=== PATIENT | female | born 1940 | race Caucasian/White ===

== ENCOUNTER 2016-04-29 07:42 | Emergency (ER) | payer BC ==
[2016-04-29 08:04] VITALS: BP 135/56
--- NOTE | 2016-04-29 09:04 | RAD ---
INDICATION: Cough and fever for 5 days. Former tobacco use. COMPARISON: None. TECHNIQUE: Dual energy PA and routine lateral views of the chest were obtained. REPORT: Bilateral linear subsegmental atelectasis at the mid to lower lung zones. No focal pulmonary lesion, pleural effusion, pneumothorax. Upper normal heart size. Unremarkable central pulmonary vasculature. Mildly tortuous descending thoracic aorta. Multilevel mild thoracic degenerative spondylosis. IMPRESSION: Bilateral linear subsegmental atelectasis. Bibasilar inflammatory infiltrate not entirely excluded.
--- NOTE | 2016-05-11 16:51 | UC ---
Arline Rodriguez Anna, scribed for Clarita Daniel MD on 04/29/16 at 0825 . Respiratory Complaint HPI - HPI Summary HPI Summary: Patient is a 76 y/o female coming to [facility] [place] presenting with gradual onset of a cough that began five days ago. She first noticed a sore throat five days ago. She then began sneezing, following by gradual onset of productive cough with yellow sputum. The throat pain has mostly resolved at this time, though it still feels scratchy. She also had a fever of 100.6 F. She has been unable to sleep because of the coughing, which has become worse since yesterday. Denies rash. Her history is significant for HLD and HTN. Denies Hx of DM. She denies using albuterol previously. She has had PNA before. She quit smoking in 1985. Her [id number], who visits rarely, is the only smoking member of the household. She does not have an inhaler at home. She has used an inhaler before. She wears a sleep apnea mask at night. - History of Current Complaint Chief Complaint: UCGeneralIllness Stated Complaint: COUGH Time Seen by Provider: 04/29/16 08:04 Hx Obtained From: Patient Onset/Duration: Gradual Onset, Lasting Days - five days ago, Worse Since - one day ago - Allergies/Home Medications Allergies/Adverse Reactions: Allergies Allergy/AdvReac Type Severity Reaction Status Date / Time sklk sutures Allergy Severe welts Uncoded 01/30/14 12:08 Home Medications: Home Medications Amlodipine Besylate [Norvasc 5 mg tab] 04/29/16 [History] Aspirin [[place]aria Aspirin EC Low Dose 81 MG] 04/29/16 [History] Atorvastatin* [Lipitor 20 MG*] 04/29/16 [History] Hydrochlorothiazide TAB* [Hydrodiuril TAB*] 04/29/16 [History] Magnesium Oxide [Magnesium] 04/29/16 [History] Moexipril HCl 04/29/16 [History] Potassium Chlor TAB (NF) [Kaon-Cl-10 TAB (NF)] 04/29/16 [History] PMH/Surg Hx/FS Hx/Imm Hx Endocrine History Of: Denies: Diabetes Cardiovascular History Of: Reports: Cardiac Disorders - high cholesterol, Hypertension - Surgical History Surgical History: Yes Surgery Procedure, Year, and Place: B/L knee replacement 2016. B/L carpal tunnel repair. B/L cataract surgery - Family History Known Family History: Positive: Hypertension - Hx in mother, Diabetes - Hx NIDDM in mother - Social History Alcohol Use: Rare Substance Use Type: None Smoking Status (MU): Former Smoker When Did the Patient Quit Smoking/Using Tobacco: 1985 Review of Systems Constitutional: Fever - See HPI Skin: Negative Eyes: Negative ENT: Sore Throat - See HPI, Nasal Discharge - See HPI Respiratory: Cough - See HPI Cardiovascular: Negative Gastrointestinal: Negative Genitourinary: Negative Motor: Negative Neurovascular: Negative Musculoskeletal: Negative Neurological: Negative Psychological: Negative All Other Systems Reviewed And Are Negative: Yes Physical Exam Triage Information Reviewed: Yes Appearance: Well-Nourished Vital Signs: Initial Vital Signs Temp 99.4 F 04/29/16 07:59 Pulse 93 04/29/16 07:59 Resp 20 04/29/16 07:59 BP 135/56 04/29/16 07:59 Pulse Ox 93 04/29/16 07:59 Vital Signs Reviewed: Yes Eye Exam: Normal ENT Exam: Other - Bilateral TM retraction. Uvula edemadous. No stridor. Airway intact. Neck exam: Normal Neck: Positive: Other: - No adenopathy appreciated Respiratory Exam: Other - Breath sounds equal. Rhoncourous cough with scattered wheezes. Respiratory: Positive: Chest non-tender, No respiratory distress, No accessory muscle use, Rhonchi, Wheezing Cardiovascular: Positive: RRR, No Murmur, Pulses Normal - sitting up, Brisk Capillary Refill Abdominal Exam: Normal Abdomen Description: Positive: Nontender, No Organomegaly, Soft Bowel Sounds: Positive: Present Musculoskeletal Exam: Normal Musculoskeletal: Positive: Strength Intact Neurological Exam: Normal - Nonfocal, grossly intact Psychological Exam: Normal - Conversing easily and appropriately Skin Exam: Normal - No visible or reported rash UC Diagnostic Evaluation - Laboratory O2 Sat by Pulse Oximetry: 93 - Radiology Xray Interpretation: Positive (See Comments) Radiology Interpretation Completed By: Radiologist - IMPRESSION: Bilateral linear subsegmental atelectasis. Bibasilar inflammatory infiltrate Re-Evaluation - Re-Evaluation First Eval Re-Evaluation Time: 09:50 Comment: Discussed results and plan of care with patient. Patient is agreeable with plan. Respiratory Course/Dx - Course Course Of Treatment: D/c delayed because name was misspelled in the system. No new problems in CCC. Considered below differential diagnoses. Symptoms c/w - Differential Dx/Diagnosis Provider Diagnoses: Acute bronchitis. Bronchospasm Discharge - Discharge Plan Condition: Stable Disposition: HOME Prescriptions: Albuterol HFA INHALER* [Ventolin HFA Inhaler*] 1 - 2 puff INH Q4H PRN #1 mdi PRN Reason: Wheezing Azithromycin [Azithromycin 500 MG TAB] 500 mg PO DAILY #5 tab Fluconazole [Diflucan 150 MG (NF)] 150 mg PO DAILY #2 tab Patient Education Materials: Acute Bronchitis (ED), Bronchospasm (ED) Referrals: Twyla Damon MD [Primary Care Provider] - Additional Instructions: Please follow up with your primary care provider, Dr. Damon - in about one week if possible. Seek medical attention for worsening problems in the meantime. The documentation as recorded by the Arline ospina Anna accurately reflects the service I personally performed and the decisions made by me, Clarita Daniel MD.
== END 2016-04-29 10:29 | disposition home or self-care (01) ==
LOC: MERGE 07:42 → UCEAST 07:42
DX: J20.9 Acute bronchitis, unspecified (principal); E78.00 Pure hypercholesterolemia, unspecified; I10 Essential (primary) hypertension; Z96.653 Presence of artificial knee joint, bilateral; Z98.42 Cataract extraction status, left eye; Z98.41 Cataract extraction status, right eye; Z87.891 Personal history of nicotine dependence
CPT/HCPCS: 71020; 87502; 87651; 99201; G0463

== ENCOUNTER 2016-09-18 21:03 | Emergency (ER) | payer MEDICARE ==
[2016-09-18 21:22] VITALS: BP 152/64
[2016-09-18] MEDS ORDERED: predniSONE TAB* 20 MG PO ONE (21:34)
--- NOTE | 2016-09-18 21:34 | UC ---
Eye Complaint HPI - HPI Summary HPI Summary: 76 year old female presents with complains of left sinus pressure and eye pain. - History of Current Complaint Chief Complaint: UCEye Stated Complaint: EYE ISSUE Time Seen by Provider: 09/18/16 21:27 - Allergies/Home Medications Allergies/Adverse Reactions: Allergies Allergy/AdvReac Type Severity Reaction Status Date / Time Amoxicillin [From Augmentin] AdvReac GI Upset Verified 09/18/16 21:47 Clavulanic Acid AdvReac GI Upset Verified 09/18/16 21:47 [From Augmentin] sklk sutures Allergy Severe welts Uncoded 01/30/14 12:08 PMH/Surg Hx/FS Hx/Imm Hx Previously Healthy: Yes - Surgical History Surgical History: Yes Surgery Procedure, Year, and Place: B/L knee replacement 2016. B/L carpal tunnel repair. B/L cataract surgery - Family History Known Family History: Positive: Cardiac Disease, Hypertension - Hx in mother, Diabetes - Hx NIDDM in mother - Social History Alcohol Use: Occasionally Substance Use Type: None Smoking Status (MU): Former Smoker Type: Cigarettes Amount Used/How Often: 1 PPD Length of Time of Smoking/Using Tobacco: 15YRS Have You Smoked in the Last Year: No When Did the Patient Quit Smoking/Using Tobacco: 1985 Review of Systems Constitutional: Negative Skin: Negative Eyes: Drainage, Eye Redness, Other - left eye pain ENT: Other - left maxillary sinus pressure Respiratory: Negative Cardiovascular: Negative Gastrointestinal: Negative Genitourinary: Negative Motor: Negative Neurovascular: Negative Musculoskeletal: Negative Neurological: Negative Psychological: Negative All Other Systems Reviewed And Are Negative: Yes Physical Exam Triage Information Reviewed: Yes Vital Signs: Initial Vital Signs Temp 37.4 C 09/18/16 21:19 Pulse 68 09/18/16 21:19 Resp 18 09/18/16 21:19 BP 152/64 09/18/16 21:19 Pulse Ox 95 09/18/16 21:19 Eyes: Positive: Conjunctiva Inflamed, Discharge ENT Exam: Normal ENT: Positive: Nasal congestion, Nasal drainage Dental Exam: Normal Neck exam: Normal Neck: Positive: 1 Respiratory Exam: Normal Cardiovascular Exam: Normal Abdominal Exam: Normal Musculoskeletal Exam: Normal Neurological Exam: Normal Psychological Exam: Normal Skin Exam: Normal Eye Complaint Course/Dx - Differential Dx/Diagnosis Provider Diagnoses: left sinus pain. left allergic conjunctivitis Discharge - Discharge Plan Condition: Stable Disposition: HOME Prescriptions: Azithromyxin PASCUAL (NF) [Z-Pascual (Zithromax) 250 mg tabs #6] 2 tab PO .TODAY, THEN 1 DAILY #6 tab Methylprednisolone [Medrol Dosepak 4 MG*] 4 mg PO .SEE PASCUAL INSTRUCTION #21 tab Naphazoline W/ Pheniramine [Opcon-A] 1 drop BOTH EYES Q6H PRN #1 bottle PRN Reason: Allergy Symptoms Patient Education Materials: Conjunctivitis (ED) Referrals: Twyla Damon MD [Primary Care Provider] - If Needed
[2016-09-18] MEDS ORDERED: Azithromycin TAB* 250 MG PO ONE (21:35)
== END 2016-09-18 21:52 | disposition home or self-care (01) ==
LOC: UCEAST 21:03
DX: J34.89 Other specified disorders of nose and nasal sinuses (principal); H10.12 Acute atopic conjunctivitis, left eye; Z88.1 Allergy status to other antibiotic agents; Z96.653 Presence of artificial knee joint, bilateral; Z98.42 Cataract extraction status, left eye; Z98.41 Cataract extraction status, right eye; Z87.891 Personal history of nicotine dependence
CPT/HCPCS: 99212; A9270-GY; G0463; J7512

== ENCOUNTER 2018-04-16 08:17 | Emergency (ER) | payer MEDICARE ==
[2018-04-16 08:26] VITALS: BP 189/78
[2018-04-16] MEDS ORDERED: HYDROcodone/ACETAMIN 5-325 MG* 1 TAB PO ONE (08:32)
--- NOTE | 2018-04-16 09:59 | UC ---
Complaint Female HPI - HPI Summary HPI Summary: Patient complaining of right flank pain that feels similar to kidney stone pain she has had in the past. No dysuria. No fever. Mild nausea. Follows with Dr. Sinha with urology. - History Of Current Complaint Chief Complaint: UCGU Stated Complaint: LOWER BACK PAIN Time Seen by Provider: 04/16/18 08:32 Hx Obtained From: Patient Onset/Duration: Gradual Onset, Still Present Timing: Constant Severity Initially: Moderate Severity Currently: Moderate Pain Intensity: 10 Pain Scale Used: 0-10 Numeric Character: Colicy Aggravating Factor(s): Nothing Alleviating Factor(s): Nothing Associated Signs And Symptoms: Positive: Back Pain, Nausea. Negative: Fever - Allergies/Home Medications Allergies/Adverse Reactions: Allergies Allergy/AdvReac Type Severity Reaction Status Date / Time amoxicillin [From Augmentin] Allergy GI Upset Verified 04/16/18 08:20 clavulanic acid Allergy GI Upset Verified 04/16/18 08:20 [From Augmentin] sklk sutures Allergy Severe welts Uncoded 04/16/18 08:20 Home Medications: Home Medications Cholecalciferol (Vitamin D3) [Vitamin D3] 5,000 unit PO DAILY 04/16/18 [History Confirmed 04/16/18] PMH/Surg Hx/FS Hx/Imm Hx Endocrine History: Dyslipidemia Cardiovascular History: Hypertension GI/ History: Kidney Stones - Surgical History Surgical History: Yes Surgery Procedure, Year, and Place: B/L knee replacement 2015. B/L carpal tunnel repair. B/L cataract surgery - Family History Known Family History: Positive: Cardiac Disease, Hypertension - Hx in mother, Diabetes - Hx NIDDM in mother - Social History Alcohol Use: Occasionally Substance Use Type: None Smoking Status (MU): Former Smoker Type: Cigarettes Amount Used/How Often: 1 PPD Length of Time of Smoking/Using Tobacco: 15YRS Have You Smoked in the Last Year: No When Did the Patient Quit Smoking/Using Tobacco: 1985 Review of Systems All Other Systems Reviewed And Are Negative: Yes Constitutional: Positive: Negative Respiratory: Positive: Negative Cardiovascular: Positive: Negative Gastrointestinal: Positive: Nausea Genitourinary: Positive: Other - FLANK PAIN Physical Exam Triage Information Reviewed: Yes Appearance: Well-Appearing, No Pain Distress, Well-Nourished Vital Signs: Initial Vital Signs Temp 98.3 F 04/16/18 08:22 Pulse 82 04/16/18 08:22 Resp 17 04/16/18 08:22 BP 189/78 04/16/18 08:22 Pulse Ox 99 04/16/18 08:22 Laboratory Tests 04/16/18 08:52 POC Urine Color Yellow POC Urine Clarity Clear POC Urine pH 5.5 POC Ur Specif [place] 1.020 POC Urine Protein Negative POC Ur Glucose (UA) Negative POC Urine Ketones Negative POC Urine Blood 1+ A POC Urine Nitrite Negative POC Urine Bilirubin Negative POC Urine Urobilinogen 0.2 POC U Leukocyte Esteras 2+ A Vital Signs Reviewed: Yes Eyes: Positive: Conjunctiva Clear ENT: Positive: Hearing grossly normal Neck: Positive: Supple Respiratory Exam: Normal Cardiovascular Exam: Normal Abdomen Description: Positive: Nontender, Soft. Negative: CVA Tenderness (R), CVA Tenderness (L), Distended, Guarding Musculoskeletal: Positive: No Edema Neurological: Positive: Alert Psychological: Positive: Normal Response To Family, Age Appropriate Behavior Skin: Negative: Rashes Diagnostics - Radiology CT ABD/PELVIS W/O CONTRAST Radiology Interpretation Completed By: Radiologist Summary of Radiographic Findings: Nephrolithiasis without evidence of obstructive uropathy. No other masses or fluid collections are noted. Complaint Female Dx - Differential Dx/Diagnosis Provider Diagnosis: Kidney stone on right side Discharge - Sign-Out/Discharge Documenting (check all that apply): Patient Departure All imaging exams completed and their final reports reviewed: Yes - Discharge Plan Condition: Stable Disposition: HOME Prescriptions: HYDROcodone/ACETAMIN 5-325 MG* [[place] 5-325 TAB*] 1 tab PO Q6H PRN #20 tab MDD 4 PRN Reason: Pain Tamsulosin CAP* [Flomax CAP*] 0.4 mg PO DAILY #7 cap Patient Education Materials: Kidney Stones (ED) Referrals: Twyla Damon MD [Primary Care Provider] - If Needed Uriah Sinha MD [Medical Doctor] - 1 Week Additional Instructions: CT ABD/PELVIS DONE. The kidneys demonstrates no hydronephrosis in either kidney or hydroureter. There are several 3 mm calculi in the right kidney without evidence of obstruction. There is a calcification in the upper pole of the left kidney measuring 7 mm. NSAIDS NEEDED FOR PAIN. HYDROCODONE/APAP FOR BREAKTHROUGH. FLOMAX DAILY FOR 7 DAYS. STRAIN YOUR URINE TO SEE IF YOU CAN CATCH THE STONE. FOLLOW-UP WITH UROLOGY. STAY WELL HYDRATED. URINE SAMPLE SENT FOR CULTURE. WE WILL CALL YOU IF ANY CHANGE IN MANAGEMENT IS INDICATED. - Billing Disposition and Condition Condition: STABLE Disposition: Home
== END 2018-04-16 10:27 | disposition home or self-care (01) ==
LOC: UCEAST 08:17
DX: N20.0 Calculus of kidney (principal); I10 Essential (primary) hypertension; Z87.891 Personal history of nicotine dependence; Z88.1 Allergy status to other antibiotic agents; Z88.0 Allergy status to penicillin; Z91.09 Other allergy status, other than to drugs and biological substances
CPT/HCPCS: 74176; 81003; 87086; 99212; G0463

== ENCOUNTER 2018-06-28 12:40 | Emergency (ER) | payer MEDICARE ==
--- OUTSIDE RECORDS SUMMARY | 2018-06-28 12:46 | XMS REPORT | Continuity of Care Document ---
:1940 External Reference #:[id number] Author Name Monica Sharmalyn Care Team Providers Name Role Phone Twyla Damon MD Care Team Information Vice President Of Business Development Unavailable Twyla Damon MD Primary Care Physician Unavailable Payers Date Identification Numbers Payment Provider Subscriber Effective: Policy Number: [id number] Medicare Blue Ppo Sae Strickland Christ 2012 Group Number: [id number] [address] PayID: [id number] HUSEYIN Evans [address] Effective: 2012 Policy Number: [id number] [employer] Cory Strickland Christ Expires: 2012 PayID: [id number] [address] [address] HUSEYIN Evans [address] Effective: 2008 Policy Number: [id number] Blue [facility] Cory Strickland Christ Expires: 2009 Group Name: [employer] [address] PayID: [id number] HUSEYIN Ruiz [address] Effective: 2009 Policy Number: [facility] Sae Strickland Christ [id number] Expires: 2012 PayID: [id number] [address] [address] HUSEYIN Ruiz [address] Problems Active Problems Provider Date Obstructive sleep apnea of adult Rossana Callejas DNP, RN, STUDENT SERVICES REP-BC Onset: 02/2011 Note: moderate to severe Localized, primary osteoarthritis Heidi Parry M.D. Onset: 11/01/2014 Family History Date Family Member(s) Observation Comments General Heart Disease General Cancer Father due to at age 85 auto accident () Mother due to at age 89 TIA () Mother Stroke Social History Type Date Description Comments Sex Unknown Marital Status Lives With Occupation Retired Tobacco Use Start: Unknown End: Former Cigarette Smoker Unknown Smoking Status Reviewed: 06/23/18 Former Cigarette Smoker ETOH Use Drinks Alcoholic Beverages Occasionally Tobacco Use Start: Unknown End: Patient is a former smoker Unknown Recreational Drug Use Denies Drug Use Exercise Type/Frequency Exercises regularly Allergies, Adverse Reactions, Alerts Active Allergies Reaction Severity Comments Date Amoxicillin / Clavulanate Nausea and Vomiting 05/14/2017 Inactive Allergies NKDA 07/12/2013 Medications Active Medications SIG Qnty Indications Ordering Date Provider Atorvastatin Calcium take 1 tablet Unknown 08/24/2014 20mg Tablets at bedtime Magnesium 1 by mouth Rossana Callejas, 08/24/2014 250mg Tablets every day DNP, RN, STUDENT SERVICES REP-BC Amlodipine Besylate 1 by mouth Unknown 5mg Tablets daily Aspirin Ec 1 by mouth 90tabs Unknown 81mg Tablets DR every day Certavite Unknown Senior/Antioxidant Nutrients Tablets Hydrochlorothiazide 1 by mouth Unknown 25mg Tablets every day Moexipril HCL 1 by mouth Unknown 15mg Tablets daily Vitamin D3 Ultra Strength 1 by mouth Unknown every day 5000Unit Capsules Potassium Chloride Quita ER take 4 Unknown 10Meq capsule/tablet Tablets ER daily by mouth History Medications Diclofenac Sodium take 1 tablet Unknown 02/14/2016 - twice a day with 05/13/[address] food Oxycodone HCL 1-2 tablets by 90caps M17.0 Edyta Cid, 11/29/2014 - 5mg mouth every 3 BUNG DROPPER 05/13/2017 Capsules hours as needed for pain Moexipril-Hydrochlo Unknown - rothiazide 05/13/2017 15-25mg Tablets Potassium Chloride 2 by mouth daily Unknown - ER 06/23/2018 10Meq Capsules ER Tessalon Perles 2 by mouth three Unknown - times a day 06/22/2018 100mg Capsules 05/14/17 Medications Administered in Office Medication SIG Qnty Indications Ordering Provider Date Depomedrol 80MG Heidi Parry M.D. 11/01/2014 Injection Depomedrol 80MG Timi Snider M.D. 03/15/2012 Injection Vital Signs Date Vital Result Comment 06/23/2018 11:32am Height 63 inches 5'3" Weight 234.00 lb Heart Rate 68 /min BP Systolic Sitting 128 mmHg BP Diastolic Sitting 70 mmHg Respiratory Rate 14 /min O2 % BldC Oximetry 95 % BMI (Body Mass Index) 41.4 kg/m2 05/14/2017 11:22am Height 63 inches 5'3" Weight 225.00 lb per pt Heart Rate 78 /min BP Systolic Sitting 130 mmHg Lue large cuff BP Diastolic Sitting 74 mmHg Lue large cuff Respiratory Rate 18 /min O2 % BldC Oximetry 95 % On Ra BMI (Body Mass Index) 39.9 kg/m2 02/15/2016 11:14am Height 63 inches 5'3" Weight 225.00 lb Heart Rate 89 /min BP Systolic Sitting 138 mmHg BP Diastolic Sitting 83 mmHg Respiratory Rate 14 /min O2 % BldC Oximetry 97 % BMI (Body Mass Index) 39.9 kg/m2 08/14/2015 11:08am Height 65 inches 5'5" Weight 210.00 lb Heart Rate 80 /min BP Systolic 140 mmHg BP Diastolic 84 mmHg Respiratory Rate 14 /min O2 % BldC Oximetry 98 % BMI (Body Mass Index) 34.9 kg/m2 11/29/2014 2:47pm Height 65 inches 5'5" Weight 225.00 lb Pain Level 7 BMI (Body Mass Index) 37.4 kg/m2 11/01/2014 1:16pm Height 65 inches 5'5" Weight 235.00 lb Heart Rate 73 /min BP Systolic 168 mmHg BP Diastolic 75 mmHg BMI (Body Mass Index) 39.1 kg/m2 08/25/2014 10:28am Height 64 inches 5'4" Weight 232.50 lb Heart Rate 78 /min BP Systolic 128 mmHg BP Diastolic 72 mmHg Respiratory Rate 14 /min O2 % BldC Oximetry 96 % BMI (Body Mass Index) 39.9 kg/m2 Neck Circumference in inches 18 07/20/2013 11:36am Height 64 inches 5'4" Weight 228.00 lb Heart Rate 70 /min BP Systolic 126 mmHg BP Diastolic 66 mmHg Pain Level 6 BMI (Body Mass Index) 39.1 kg/m2 Results Test Date Facility Test Result H/L Range Note Surgical 06/10/2012 [facility] S RUN DATE: [address] 06/11/ <[place] [address] NOTE> [phone] CBC Auto Diff 06/03/2012 [facility] White Blood 9.4 10^3/uL 4.8-10.[address] [place] [address] [phone] Red Blood Count 4.59 10^6/uL 4.0-5.4 Hemoglobin 13.7 g/dL 12.0-16.0 Hematocrit 41 % 35-47 Mean Corpuscular Volume 90 fL 80-97 Mean Corpuscular Hemoglobin 30 pg 27-31 Mean Corpuscular HGB Conc 33 g/dL 31-36 Red Cell Distribution Width 14 % 10.5-15 Platelet Count 208 10^3/uL 150-450 Mean Platelet Volume 10 um3 7.4-10.4 Abs Neutrophils 5.6 10^3/uL 1.5-7.7 Abs Lymphocytes 2.8 10^3/uL 1.0-4.8 Abs Monocytes 0.7 10^3/uL 0-0.8 Abs Eosinophils 0.2 10^3/uL 0-0.6 Abs Basophils 0.1 10^3/uL 0-0.2 Abs Nucleated RBC 0 10^3/uL Granulocyte % 60.0 % 38-83 Lymphocyte % 30.0 % 25-47 Monocyte % 7.3 % 1-9 Eosinophil % 2.0 % 0-6 Basophil % 0.7 % 0-2 Nucleated Red Blood Cells % 0 Basic Metabolic Panel 06/03/2012 [facility] Sodium 139 mmol/L 133-[address] [place] [address] [phone] Potassium 3.9 mmol/L 3.5-5.0 Chloride 105 mmol/L 101-111 Co2 Carbon Dioxide 28.0 mmol/L 22-32 Anion Gap 6.0 mmol/L 2-11 Glucose 101 mg/dL High 70-100 Blood Urea Nitrogen 21 mg/dL 6-24 Creatinine 0.70 mg/dL 0.50-1.40 BUN/Creatinine Ratio 30.0 High 8-20 Calcium 9.7 mg/dL 8.1-9.9 Egfr Non- 82.5 >60 Egfr 106.1 >60 2 Xray 02/08/2009 [facility] CT, Head/ Brain W/O Contrast DX: 432.1 [facility] [place] [address] [phone] 1 RUN DATE: 06/11/12 [facility] LAB LIVE PAGE 1 RUN TIME: 133[address] [employer] [place], [place] [address] Specimen Inquiry Name: SAE CHURCH : [address]: Timi Snider MD Acct: [id number] Unit: [id number] AGE: 72 Location: OR Re06/10/12 SEX: F Status: REG [facility] SPEC: [id number] CHECO: 06/10/12- SUBM DR: Timi Snider MD REQ: [id number] RECD: 06/10/12 STATUS: SOUT _ ORDERED: LEVEL III FINAL DIAGNOSIS Knee, left, shavings: A. Fragments of hyperplastic synovium with fibrosis, chronic inflammation, neovascularization, and myxoid change. B. Fragments of fibrocartilage with myxoid degeneration. PRE-OPERATIVE DIAGNOSIS Medial meniscal near left knee. GROSS DESCRIPTION The specimen is received in formalin labeled Sae Church, Arthroscopic Shavings Left Knee and consists of a 8.5 x 3.0 x 1.0 cm. aggregate of yellow and white tissue fragments. Submitted entirely, one cassette. Signed (signature on file) Ward Cross MD 1338 END OF REPORT * ML=Testing performed at Main Lab DEPARTMENT OF PATHOLOGY, [address] [place] [address] Ward Cross M.D. Director [facility] Permit #[id number] 2 Because ethnic data is not always readily available, this report includes an eGFR for both -Americans and non- Americans. The National Kidney Disease Education Program (NKDEP) does not endorse the use of the MDRD equation for patients that are not between the ages of 18 and 70, are , have extremes of body size, muscle mass, or nutritional status, or are non- or non-. According to the National Kidney Foundation, irrespective of diagnosis, the stage of the disease is based on the level of kidney function: Stage Description GFR(mL/min/1.73 m(2)) 1 Kidney damage with normal or decreased GFR 90 2 Kidney damage with mild decrease in GFR 60-89 3 Moderate decrease in GFR 30-59 4 Severe decrease in GFR 15-29 5 Kidney failure <15 (or dialysis) Procedures Date Code Description Status 11/01/201409449 Inject/Drain Joint/Bursa Major W/O US Completed 07/20/2013 87518 Xray Knee 3 Views Completed 07/20/2013 46230 Rad Exam; Knee, Ap&L Completed 06/10/2012 64623 Arthroscopy,Knee,Meniscectomy Medial Or Lateral Completed 06/10/2012 05154 Arthroscopy,Knee,Meniscectomy Medial Or Lateral Completed 05/12/2012 42712 Rad Exam; Both Knees, Standing Ap Completed 03/15/2012 99817 Rad Exam; Both Knees, Standing Ap Completed 03/15/201220067 Inject/Drain Joint/Bursa Major W/O US Completed 02/18/2008 58812 EKG, Interpretation Only Completed 02/18/2008 91734 EKG, Interpretation Only Completed Encounters Type Date Location Provider Dx Diagnosis Office Visit 05/14/2017 Pulmonology And Rossana Callejas, G47.33 Obstructive sleep 11:30a [facility] LOZADA, SHAKEEL-CHINYERE apnea (adult) [facility] (pediatric) Z68.39 Body mass index (BMI) 39.0-39.9, adult Office Visit 02/15/2016 Pulmonology And Rossana G47.33 Obstructive sleep 11:15a [facility] Callejas RN, apnea (adult) [place] BECKFORD-CHINYERE (pediatric) Office Visit 08/14/2015 Pulmonology And Rossana G47.33 Obstructive sleep 11:00a [facility] Callejas RN, apnea (adult) [employer] SHAKEEL-CHINYERE (pediatric) L89.812 Pressure ulcer of head, stage 2 E66.9 Obesity, unspecified Office Visit 11/29/2014 2:45p Orthopedic Heidi M17.0 Bilateral primary Services Of [facility] Parry osteoarthritis of C.M.A. 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 knee M25.461 Effusion, right knee M25.462 Effusion, left knee M25.562 Pain in left knee M25.561 Pain in right knee Office Visit 08/25/2014 Pulmonology And Rossana 327.23 Obstructive Sleep 11:30a [facility] Callejas, Apnea Adult & [employer] RN, STUDENT SERVICES REP-CHINYERE Pediatric Office Visit 07/20/2013 Néstor Snider 71Leonel.96 Osteoarthrosis 11:15a Services Of Melissa Unspec Genlzd Or C.M.A. Localized Lower Leg Office Visit 05/12/2012 Con Kenyon.96 Osteoarthrosis 10:45a Services Of Melissa Unspec Genlzd Or C.M.A. Localized Lower Leg Office Visit 03/15/2012 Con Kenyon.96 Osteoarthrosis 2:00p Services Of [facility] Unspec Genlzd Or C.M.A. Localized Lower Leg 836.0 Dislocation Knee Tear Of Medial Cartilage Or Meniscus Curren Office Visit 02/12/2009 1:30p Neurosurgery Dinesh Prabhakar.1 Hemorrhage Services Of [facility] Olmos M.D. Subdural Office Visit 02/07/2009 11:00a Neurosurgery Dinesh Prabhakar.1 Hemorrhage [facility] Olmos M.D. Subdural Office Visit 02/05/2009 4:15p Neurosurgery Dinesh Prabhakar.1 Hemorrhage [facility] Olmos M.D. Subdural Plan of Treatment Future Appointment(s):06/28/2019 11:15 am - Rossana Callejas DNP, RN, STUDENT SERVICES REP-BC at [facility]06/23/2018 - Rossana Callejas DNP, RN, STUDENT SERVICES REP- BCG47.33 Obstructive sleep apnea (adult) (pediatric)Comments:07/11/11 split night study AHI 26.9 rodolfo oxygen 74%, wt 5'4'', wt 224. On CPAP 7 cm AHI 0.3/hour , normalFollow up:1 yearRecommendations:Continue PAP device, Benefitting and compliant with treatment. Cleaning Wipe off mask daily (baby wipe-no scent, or warm water) Clean mask, tubing, filter, and water chamber weekly in mild no scent dish soap and water. Hang to dry. If you have any sleepiness while driving you MUST avoid operating a vehicle or machinery. If you have difficulty with your equipment, or need to replace your mask or hoses, please contact your homecare agency. A weight change of 20 pounds or more may have an effect onyour equipment; if you are experiencing problems please call for an appointment. If you have any further questions, please call the [facility] at .E66.9 Obesity, unspecifiedRecommendations:Recommend weight loss, avoid weight gain Overall weight gain 10# since your sleep apnea lyleruzncQ81.41 Body mass index (BMI) 40.0-44.9, adultRecommendations:see assessment #2
[2018-06-28 13:22] VITALS: BP 142/71
--- NOTE | 2018-06-29 07:12 | UC ---
- Progress Note Progress Note: Patient Name: SAE CHURCH Medical Record#: [id number] Ordering Physician: Susana Pierre NP Acct.#: [id number] : 1940 Age: 78 Sex: F Location: [facility] Exam Date: 06/28/18 1350 ADM Status: REG ER Order Information: US RENAL COMPLETE Accession Number: [id number] CPT: 65625 Indication: LEFT flank pain today. History of nephrolithiasis. Comparison: April 16, 2018 CT. Technique: Renal ultrasound. Report: 10.4 x 4.2 x 4.6 cm RIGHT kidney with normal cortical thickness and echogenicity is remarkable for 4 calyceal stones with dominant 1.0 x 0.5 x 0.7 cm midpole stone measuring larger than conspicuous on the April 16, 2018 CT however this may be technical. Negative for hydronephrosis. Negative for suspicious focal RIGHT renal lesions. 11.8 x 5.3 x 5.2 cm LEFT kidney demonstrates normal cortical thickness and echogenicity. 0.8 cm maximum dimension mid to superior pole calyceal stone is unchanged compared with the prior CT. Negative for hydronephrosis. Negative for focal LEFT renal lesions. IMPRESSION: #. Bilateral nephrolithiasis as described. Negative for hydronephrosis. <Electronically signed by Narinder Jean MD in OV> 06/28/181516 Dictated By: Narinder Jean MD Dictated Date/Time: 06/28/181516 Transcribed Date/Time: 06/28/18 151 Copy to: CC:Twyla Damon MD; Susana Pierre MODEL ENGINE MECHANIC; Aditya Miranda MD Imaging - [facility] Imaging - [place] [facility] [address] [address] ph [phone]) ph ([phone]) ph ([phone]) This report is only to be considered final once signed by the Provider(s) as displayed in the "<Electronically Signed by >" field (s). Absence of a signature indicates the report is in a draft status and still needs to be finalized. In the event this document was created by someone other than the signing Provider, the individual initiating the document will be listed in the "Entered by:" or "Dictated by:" lilly. 1 of 1 Course/Dx - Diagnoses Provider Diagnoses: Strain of thoracic back region Discharge - Sign-Out/Discharge Documenting (check all that apply): Post-Discharge Follow Up All imaging exams completed and their final reports reviewed: Yes - Discharge Plan Condition: Fair Disposition: HOME Prescriptions: Cyclobenzaprine TAB* [Flexeril 10 MG TAB*] 10 mg PO TID PRN #15 tab PRN Reason: Pain Patient Education Materials: Thoracic Back Strain (ED) Referrals: Twyla Damon MD [Primary Care Provider] - Additional Instructions: Avoid movements that cause pain, no lifting, twisting, pushing, pulling, bending. May apply heat to the sore area. Do not alcohol, drive or operate machinery while you're taking the muscle relaxant. He may also take Motrin 600 mg every 8 hours with food over the next few days. Follow-up with Dr. Tidwell by phone to check on tomorrow's appointment. - Billing Disposition and Condition Condition: FAIR Disposition: Home
--- NOTE | 2018-07-04 08:19 | UC ---
Back Pain HPI - HPI Summary HPI Summary: 78-year-old female who has left-sided mid thoracic back pain which she thinks might be a kidney stone. This was a gradual onset however she does not remember any known injury. She is scheduled for a renal sonogram tomorrow with Dr. Sinha. - History of Current Complaint Chief Complaint: UCBackPain Stated Complaint: UPPER BACK PAIN Time Seen by Provider: 06/28/18 13:41 Hx Obtained From: Patient ?: No Onset/Duration: Gradual Onset Timing: Intermittent Severity Initially: Mild Severity Currently: Mild Pain Intensity: 1 Pain Scale Used: Adult Non Verbal Character: Dull, Aching - Patient feels a back pain mostly with movement and she can replicate the pain when she is turning to the right or left. Aggravating Factor(s): Movement Alleviating Factor(s): Rest Associated Signs And Symptoms: Positive: Negative - Allergies/Home Medications Allergies/Adverse Reactions: Allergies Allergy/AdvReac Type Severity Reaction Status Date / Time amoxicillin [From Augmentin] Allergy GI Upset Verified 06/28/18 13:11 clavulanic acid Allergy GI Upset Verified 06/28/18 13:11 [From Augmentin] sklk sutures Allergy Severe welts Uncoded 06/28/18 13:11 Home Medications: Home Medications Chlorthalidone TAB* [Hygroton TAB*] 25 mg PO DAILY 06/28/18 [History Confirmed 06/28/18] Moexipril HCl 15 mg PO DAILY 06/28/18 [History Confirmed 06/28/18] PMH/Surg Hx/FS Hx/Imm Hx Previously Healthy: Yes Cardiovascular History: Hypertension - Surgical History Surgical History: Yes Surgery Procedure, Year, and Place: B/L knee replacement 2015. B/L carpal tunnel repair. B/L cataract surgery. cholecystectomy, appendectomy, tubal ligation - Family History Known Family History: Positive: Cardiac Disease, Hypertension - Hx in mother, Diabetes - Hx NIDDM in mother - Social History Alcohol Use: Occasionally Substance Use Type: None Smoking Status (MU): Former Smoker Type: Cigarettes Amount Used/How Often: 1 PPD Length of Time of Smoking/Using Tobacco: 15YRS Have You Smoked in the Last Year: No When Did the Patient Quit Smoking/Using Tobacco: 1985 Review of Systems All Other Systems Reviewed And Are Negative: Yes Motor: Positive: Negative Neurovascular: Positive: Negative Musculoskeletal: Positive: Negative, Other: - Mild pain to the left back can replicate with movement turning or twisting. Denies any numbness or tingling in extremities, no saddle anesthesia. Physical Exam Triage Information Reviewed: Yes Appearance: Well-Appearing, No Pain Distress, Well-Nourished Vital Signs: Initial Vital Signs Temp 99 F 06/28/18 13:15 Pulse 73 06/28/18 13:15 Resp 16 06/28/18 13:15 BP 142/71 06/28/18 13:15 Pulse Ox 96 06/28/18 13:15 Vital Signs Reviewed: Yes Respiratory: Positive: Lungs clear, Normal breath sounds, No respiratory distress, No accessory muscle use Cardiovascular: Positive: RRR, No Murmur, Pulses Normal, Brisk Capillary Refill Abdomen Description: Positive: Nontender, No Organomegaly, Soft Bowel Sounds: Positive: Present Musculoskeletal Exam: Normal Musculoskeletal: Positive: Other: - Mild tenderness on palpation over the left mid thoracic paraspinal muscle area. No CVA tenderness. Patient can replicate this with movement. Neurological Exam: Normal Psychological Exam: Normal Skin Exam: Normal Back Pain Course/Dx - Course Course Of Treatment: Patient has been comfortable here. Because she has a back pain and a history of kidney stones and she has an ultrasound scheduled for tomorrow I did the renal sonogram here. Please see that report. I believe this is more of a muscle strain as opposed to her residual kidney stones. She can try heat to the area comfort measures Tylenol for pain or Motrin and definitely keep the appointment with Dr. Dai tomorrow. She is to go the emergency room for any worsening symptoms. - Differential Dx/Diagnosis Provider Diagnosis: Strain of thoracic back region Discharge - Sign-Out/Discharge Documenting (check all that apply): Patient Departure All imaging exams completed and their final reports reviewed: Yes - Discharge Plan Condition: Fair Disposition: HOME Prescriptions: Cyclobenzaprine TAB* [Flexeril 10 MG TAB*] 10 mg PO TID PRN #15 tab PRN Reason: Pain Patient Education Materials: Thoracic Back Strain (ED) Referrals: Twyla Damon MD [Primary Care Provider] - Additional Instructions: Avoid movements that cause pain, no lifting, twisting, pushing, pulling, bending. May apply heat to the sore area. Do not alcohol, drive or operate machinery while you're taking the muscle relaxant. He may also take Motrin 600 mg every 8 hours with food over the next few days. Follow-up with Dr. Tidwell by phone to check on tomorrow's appointment. - Billing Disposition and Condition Condition: FAIR Disposition: Home
== END 2018-06-28 15:40 | disposition home or self-care (01) ==
LOC: UCEAST 12:40
DX: S29.012A Strain of muscle and tendon of back wall of thorax, initial encounter (principal); X58.XXXA Exposure to other specified factors, initial encounter; Y92.9 Unspecified place or not applicable; N20.0 Calculus of kidney; Z87.442 Personal history of urinary calculi; I10 Essential (primary) hypertension; Z96.653 Presence of artificial knee joint, bilateral; Z88.1 Allergy status to other antibiotic agents; Z88.0 Allergy status to penicillin; Z91.048 Other nonmedicinal substance allergy status; Z87.891 Personal history of nicotine dependence
CPT/HCPCS: 76775; 99212; G0463

== ENCOUNTER 2020-03-07 11:25 | Observation (INO) ==
[2020-03-07] MEDS ORDERED: Ondansetron 4 mg VIAL 2 MG/ML 2 ml VIAL IV PRN ×2 (13:30→17:50)
[2020-03-07 13:45] LABS: ABS Basophils 0.1 10^3/ul (0-0.2); ABS Eosinophils 0.1 10^3/ul (0-0.6); ABS Lymphocytes 2.3 10^3/ul (1.0-4.8); ABS Monocytes 0.6 10^3/ul (0-0.8); ABS Neutrophils 5.4 10^3/ul (1.5-7.7); Eosinophil % 1.1 %; Hematocrit 27 % (35-47); Hemoglobin 9.3 g/dL (12.0-16.0); Lymphocyte % 26.9 %; Mean Corpuscular HGB Conc 34 g/dL (31-36); Mean Corpuscular Hemoglobin 30 pg (27-31); Mean Corpuscular Volume 87 fL (80-97); Mean Platelet Volume 8.2 fL (7.4-10.4); Platelet Count 250 10^3/uL (150-450); Red Blood Count 3.12 10^6 /uL (3.70-4.87); Red Cell Distribution Width 14 % (10-15); White Blood Count 8.4 10^3/uL (3.5-10.8)
[2020-03-07 14:04] LABS: Albumin 3.5 g/dL (3.2-5.2); Albumin/Globulin Ratio 0.9 (1-3); BUN/Creatinine Ratio 9.8 (8-20); Calcium 9.8 mg/dL (8.6-10.3); EGFR African American 36.7 (>60); EGFR Non-African American 30.3 (>60); Globulin 4.1 g/dL (2-4); Potassium 3.8 mmol/L (3.5-5.0); Total Bilirubin 0.5 mg/dL (0.2-1.0); Total Protein 7.6 g/dL (6.4-8.9)
[2020-03-07 15:36] LABS: Urine Appearance Clear; Urine Bilirubin Negative (Negative); Urine Blood Negative (Negative); Urine Color Colorless; Urine Glucose Negative (Negative); Urine Ketones Negative (Negative); Urine Nitrite Negative (Negative); Urine Protein Negative (Negative); Urine Specific Gravity 1.002 (1.010-1.030); Urine Urobilinogen Negative (Negative)
[2020-03-07] MEDS ORDERED: Iohexol 180 (CONTRAST) 10 ML SDV IV ONE (16:46)
[2020-03-07] MEDS ORDERED: cefTRIAXone 2 GM ADDV.VIAL ONE (17:08)
[2020-03-07] MEDS ORDERED: NS 0.9% 1000 ml BAG 1,000 ML IV SCH (17:15)
[2020-03-07] MEDS ORDERED: HYDROmorphone 1 MG/1 ML SYRINGE IV PRN (17:50)
[2020-03-07] MEDS ORDERED: Levalbuterol 0.63MG/3ML NEB UNIT OF USE INH PRN (17:50)
[2020-03-07] MEDS ORDERED: fentaNYL 100 mcg/2 ml 50 MCG/ML VIAL IV PRN (17:50)
[2020-03-07] MEDS ORDERED: Naloxone 0.4 mg VIAL 0.4 mg/ml 1 ml VIAL IV PRN (17:50)
[2020-03-07] MEDS ORDERED: NS 0.9% 1,000 ML IV SCH (21:00)
[2020-03-08 08:02] VITALS: BP 134/54
[2020-03-08] MEDS ORDERED: Fluticasone NASAL SPRAY 50MCG 16 gm SPRAY BTL INTRANASAL SCH (09:00)
== END 2020-03-08 10:30 | disposition home or self-care (01) ==
LOC: SSU 11:25 → ED 11:25 → SSU 16:32
PROVIDERS: ADMIT Internal Medicine; ATTEND Internal Medicine